=== PATIENT | female | born 1945 | race Caucasian/White ===

== ENCOUNTER 2017-12-19 09:47 | Emergency (ER) | payer MEDICARE ==
[2017-12-19 10:24] VITALS: BP 138/70
[2017-12-19] MEDS ORDERED: Albuterol/Ipratropium NEB.SOL* Albuterol 2.5 MG/Ipratropium 0.5 MG 3 ML INH ONE (10:40)
--- NOTE | 2017-12-19 10:58 | RAD ---
HISTORY: cough, fever, immunocompromised COMPARISONS: None VIEWS: 4: Frontal dual-energy and lateral views of the chest. FINDINGS: CARDIOMEDIASTINAL SILHOUETTE: The cardiomediastinal silhouette is normal. LIZ: The liz are normal. PLEURA: The costophrenic angles are sharp. No pleural abnormalities are noted. LUNG PARENCHYMA: The lungs are clear. ABDOMEN: The upper abdomen is clear. There is no subphrenic gas. BONES AND SOFT TISSUES: Degenerative changes are noted along the spine. OTHER: None. IMPRESSION: NO ACTIVE CARDIOPULMONARY DISEASE.
--- NOTE | 2017-12-19 10:58 | UC ---
Respiratory Complaint HPI - HPI Summary HPI Summary: pt presents to reporting 5 days progressive congestion, cough with yellow thick sputum, fatigue, chills. Pt states family member hospitalized yesterday with flu and pna. Pt denies rash. Pt has not taken any OTC meds. Pt states ears feel plugged, + PND. No n/v/d. PT is immunocompromised - take Humira for RA and has DM. No h/o lung disease Pt's medications reviewed this visit - History of Current Complaint Chief Complaint: UCGeneralIllness Stated Complaint: CHILLS COUGH SORE THROAT HEADACHE Time Seen by Provider: 12/19/17 10:30 Hx Obtained From: Patient Hx Last Menstrual Period: n/a ?: No Onset/Duration: Gradual Onset Pain Intensity: 0 - Allergies/Home Medications Allergies/Adverse Reactions: Allergies Allergy/AdvReac Type Severity Reaction Status Date / Time codeine AdvReac Hallucinati Verified 12/19/17 10:21 ons Home Medications: Home Medications Adalimumab [Humira] 40 mg SQ WEEKLY 12/19/17 [History Confirmed 12/19/17] Brimonidine P 0.15%(NF) [Alphagan P 0.15%(NF)] 1 drop BOTH EYES TID 12/19/17 [ History Confirmed 12/19/17] Cholecalciferol TAB* [Vitamin D TAB*] 2,000 units PO DAILY 12/19/17 [History Confirmed 12/19/17] Dorzolamide HCl/Pf [Dorzolamide 2% Eye Drop] 10 ml OP DAILY 12/19/17 [History Confirmed 12/19/17] Dorzolamide HCl/Timolol Maleat [Cosopt Eye Drops] 10 ml OP BID 12/19/17 [ History Confirmed 12/19/17] Folic Acid TAB* [Folvite TAB*] 2 mg PO DAILY 12/19/17 [History Confirmed ] Glimepiride 1 mg PO DAILY 12/19/17 [History Confirmed 12/19/17] Latanoprost 0.005%* [Xalatan 0.005%*] 1 drop BOTH EYES QPM 12/19/17 [History Confirmed 12/19/17] Meloxicam [Mobic] 7.5 mg PO DAILY 12/19/17 [History Confirmed 12/19/17] Olmesartan/Hydrochlorothiazide [Benicar Hct 20-12.5 mg] 1 tab PO DAILY 12/19/17 [History Confirmed 12/19/17] Pantoprazole TAB (NF) [Protonix TAB (NF)] 40 mg PO DAILY 12/19/17 [History Confirmed 12/19/17] Potassium Chlor TAB* [Klor Con ER TAB*] 20 meq PO DAILY 12/19/17 [History Confirmed 12/19/17] Rosuvastatin Calcium [Crestor] 5 mg PO DAILY 12/19/17 [History Confirmed ] Sitagliptin Phosphate [Januvia] 50 mg PO DAILY 12/19/17 [History Confirmed 12/19] metFORMIN* [Glucophage 500 MG TAB *] 500 mg PO BID 12/19/17 [History Confirmed 12/19/17] PMH/Surg Hx/FS Hx/Imm Hx Previously Healthy: No - RA, DM - Surgical History Surgical History: Yes Surgery Procedure, Year, and Place: bilateral knee surgery. bunion surgery bilateral. hysterectomy - Family History Known Family History: Positive: Other - non contributory - Social History Lives: With Family Alcohol Use: Occasionally Substance Use Type: None Smoking Status (MU): Never Smoked Tobacco Review of Systems Constitutional: Chills, Fatigue ENT: Sore Throat, Ear Ache, Nasal Discharge, Sinus Congestion Respiratory: Cough All Other Systems Reviewed And Are Negative: Yes Physical Exam - Summary Physical Exam Summary: Vital Signs Reviewed: Yes A+Ox3, no distress, coarse cough, raspy voice Eyes: Conjunctiva Clear, CHANEL. EOM intact and full ENT: Hearing grossly normal cerum right TM - partial obstruction left TM wnl turbbinates inflammed and boggy +PND uvula midline, no exudate, no erythema Neck: Positive: Supple Respiratory: Positive: coarse cough, scattered ex wheeze, speaking full sentences no accessory muscle use Cardiovascular: RRR nl s1, s2 no m/r CBT <2 sec abd soft + BS nt/nd no guarding, no distension Musculoskeletal Exam: ALLRED x 4 without difficulty Strength Intact, ROM Intact Neurological: Positive: Alert, + sensation throughout Psychological: Positive: Normal Response To Family Skin: Positive: no rash, no ecchymosis Triage Information Reviewed: Yes Vital Signs: Initial Vital Signs Temp 98.7 F 12/19/17 10:19 Pulse 80 12/19/17 10:19 Resp 18 12/19/17 10:19 BP 138/70 12/19/17 10:19 Pulse Ox 98 12/19/17 10:19 Diagnostic Evaluation - Laboratory O2 Sat by Pulse Oximetry: 98 - Radiology Radiology Interpretation Completed By: Radiologist - Patient Name: CHARBEL YANEZ Medical Record#: [id number] Re-Evaluation - Re-Evaluation First Eval Change: Improved - Pt BS improved following neb No wheeze reviewed CXR and + influenza will Rx Tamiflu given immunosuppressant therapies secretion precaution return precaution pt comfortable and in agreement with plan Respiratory Course/Dx - Course Course Of Treatment: PT presents to with progressive cough, congestion, mild SOB. Pt immunocompromised and exposed to + flu, PNA Sun VSS. Pt with scattered wheeze and coarse cough. Will check CXR, flu and duoneb. reassess. Pt in agreement with plan - Differential Dx/Diagnosis Provider Diagnoses: influenza. cough Discharge - Sign-Out/Discharge Documenting (check all that apply): Patient Departure All imaging exams completed and their final reports reviewed: Yes - Discharge Plan Condition: Stable Disposition: HOME Prescriptions: Albuterol HFA INHALER* [Ventolin HFA Inhaler*] 2 puff INH Q4H PRN #1 mdi PRN Reason: wheeze Oseltamivir CAP* [Tamiflu CAP*] 75 mg PO BID #14 cap Spacer/Holding Chamber (NF) [Easivent CHAMBER (NF)] 1 inh INH Q4HR #1 device Patient Education Materials: Influenza (ED) Referrals: Yosi Pena MD [Primary Care Provider] - Additional Instructions: - Stay well hydrated. Drink plenty of non-alcoholic, non-caffinated beverages. - Alternate ibuprofen (Advil, Motrin) 600mg and Tylenol every 3 hours for pain or fever. Take with food. Do NOT take for more than 4-5 days. - These infections are spread by secretions - do NOT share eating or drinking utensils - clean items you share with other people such as cell phones, computer mouse, TV remote, computer tablets,etc. Once you start to feel better, change your toothbrush and your pillowcase. - Take Tamiflu as prescribed - Use inhaler - 2 puffs every 4 hours today and tomorrow, then every 4 hours as needed - get plenty of restful sleep - humidify the air in the room where you sleep - boil water, run a hot steam shower, vaporizer, cups of water by heat register - okay to take over the counter decongestant and cough medication - contact your doctor or return with questions or concerns - Billing Disposition and Condition Condition: STABLE Disposition: Home
== END 2017-12-19 11:47 | disposition home or self-care (01) ==
LOC: UCCORT 09:47
DX: J11.1 Influenza due to unidentified influenza virus with other respiratory manifestations (principal); R05 Cough; M06.9 Rheumatoid arthritis, unspecified; E11.9 Type 2 diabetes mellitus without complications; Z79.84 Long term (current) use of oral hypoglycemic drugs; Z79.899 Other long term (current) drug therapy; Z88.5 Allergy status to narcotic agent
CPT/HCPCS: 71046; 99212; A9270-GY; G0463